=== PATIENT | female | born 1995 | race Caucasian/White ===

== ENCOUNTER 2022-05-27 17:32 | Outpatient (CLI) | payer OTHER ==
[2022-05-27] MEDS ORDERED: PRENATAL + DHA1 EAC1 PO (17:57)
[2022-05-27] MEDS ORDERED: SYNTHROID75 MCG PO (17:57)
[2022-05-27] MEDS ORDERED: ADULT LOW DOSE81 M1 (17:58)
== END 2022-05-27 19:24 | disposition home or self-care (01) ==
LOC: OBS/DEL 17:32
PROVIDERS: ATTEND Obstetrics & Gynecology
DX: O47.03 False labor before 37 completed weeks of gestation, third trimester (principal); Z3A.38 38 weeks gestation of pregnancy; Z88.1 Allergy status to other antibiotic agents